=== PATIENT | female | born 1990 | race Caucasian/White ===

== ENCOUNTER 2017-01-26 15:27 | Inpatient (IN) | payer OTHER ==
[~2017-01-26] VITALS: Ht 167.6 cm; Wt 52.0 kg
[2017-01-26] MEDS ORDERED: PLEASE ENTER ALLERGIES MC SCH ×2 (16:00)
[2017-01-26] MEDS ORDERED: PLEASE ENTER HEIGHT AND WEIGHT MC SCH (16:00)
[2017-01-26] MEDS ORDERED: SODIUM CHLORIDE 0.9% 1,000ML IVBOLUS ONE (16:00)
[2017-01-26] MEDS ORDERED: ZIPRASIDONE 20 MG INJ IM ONE ×2 (16:30→21:20)
[2017-01-26 17:12] LABS: HEMATOCRIT 45.1 % (34.6-47.8); HEMOGLOBIN 15.4 g/dL (11.7-16.4); WHITE BLOOD COUNT 8.6 x10^3/uL (3.4-10)
[2017-01-26 17:22] LABS: BLOOD UREA NITROGEN 26 mg/dL (7-18)
[2017-01-26 18:31] LABS: ASPARTATE AMINO TRANSFERASE 23 U/L (15-37)
[2017-01-26 18:37] LABS: ACETAMINOPHEN < 2 mcg/mL (10-30)
[2017-01-27] MEDS ORDERED: ZIPRASIDONE 20 MG INJ IM ONE ×2 (06:08→06:30)
[2017-01-27 16:47] LABS: DAU SCREEN DISCLAIMER
[2017-01-27 16:53] LABS: PATH.CAST-FLAG NOT PRESENT; SPERM-FLAG NOT PRESENT; SRC-FLAG NOT PRESENT; XTAL-FLAG NOT PRESENT; YLC-FLAG NOT PRESENT
[2017-01-28] MEDS ORDERED: DOCUSATE 100 MG CAPSULE PO PRN (12:00)
[2017-01-28] MEDS ORDERED: SULFAMETH./TRIMETHOPRIM DS 800MG/160MG TABLET PO ONE (13:00)
[2017-01-28] MEDS ORDERED: HALOPERIDOL 5 MG/ML IM ONE (14:30)
[2017-01-28 19:27] VITALS: BP 100/63
[2017-01-28 20:51] VITALS: BP 112/73
[2017-01-28] MEDS ORDERED: SULFAMETH./TRIMETHOPRIM DS 800MG/160MG TABLET PO SCH ×2 (21:00)
[2017-01-28] MEDS: CEFTRIAXONE PMX 1GM/50ML 50 ML IV SCH (21:27)
[2017-01-28] MEDS: POTASSIUM CHLORIDE 20 MEQ, MAGNESIUM SULFATE 1 GM, FOLIC ACID 1 MG, THIAMINE 100 MG, MV... IV SCH (22:30)
[2017-01-28] MEDS ORDERED: LORazepam 2 MG/ML, 1ML IVPush PRN (23:30)
[2017-01-29 01:19] VITALS: BP 105/65
[2017-01-29 07:00] VITALS: BP 87/51
[2017-01-29 10:14] LABS: HCG UR OBC PASS
[2017-01-29] MEDS: QUETIAPINE 25MG TABLET PO SCH ×2 (10:36→22:26)
[2017-01-29 13:07] VITALS: BP 101/65
[2017-01-29] MEDS ORDERED: LORazepam 1MG TABLET PO PRN (16:30)
[2017-01-29 19:05] VITALS: BP 109/58
[2017-01-29] MEDS: CEFTRIAXONE PMX 1GM/50ML 50 ML IV SCH (22:26)
[2017-01-30] MEDS: POTASSIUM CHLORIDE 20 MEQ, MAGNESIUM SULFATE 1 GM, FOLIC ACID 1 MG, THIAMINE 100 MG, MV... IV SCH (01:44)
[2017-01-30 01:56] VITALS: BP 106/67
[2017-01-30 07:47] VITALS: BP 111/67
[2017-01-30] MEDS: QUETIAPINE 25MG TABLET PO SCH ×2 (09:01→21:21)
[2017-01-30 13:02] VITALS: BP 127/53
[2017-01-30] MEDS: ASA/APAP/ CAFFEINE TABLET PO PRN (16:16)
[2017-01-30 17:22] LABS: BLOOD UREA NITROGEN 21 mg/dL (7-18)
[2017-01-30 18:27] VITALS: BP 120/78
[2017-01-30] MEDS ORDERED: LORazepam 1MG TABLET PO PRN (18:30)
[2017-01-30] MEDS: LORazepam 1MG TABLET PO PRN (18:32)
[2017-01-30] MEDS: CEFDINIR 300 MG CAPSULE PO SCH (21:00)
[2017-01-31 00:34] VITALS: BP 108/71
[2017-01-31] MEDS: ASA/APAP/ CAFFEINE TABLET PO PRN (05:17)
[2017-01-31] MEDS: LORazepam 1MG TABLET PO PRN ×3 (05:17→18:39)
[2017-01-31 06:48] VITALS: BP 103/64
[2017-01-31] MEDS: QUETIAPINE 25MG TABLET PO SCH (08:55)
[2017-01-31] MEDS: CEFDINIR 300 MG CAPSULE PO SCH ×2 (08:59→20:16)
[2017-01-31] MEDS: MULTIVITAMIN 1 TABLET PO SCH (08:59)
[2017-01-31 12:47] VITALS: BP 114/73
[2017-01-31] MEDS: IBUPROFEN 200 MG TABLET PO PRN (14:34)
[2017-01-31] MEDS: HALOPERIDOL 5 MG/ML IM PRN (15:09)
[2017-01-31 18:35] VITALS: BP 132/79
[2017-01-31 19:12] VITALS: BP 159/88
[2017-01-31] MEDS: OLANZAPINE 10 MG TABLET PO SCH (20:15)
[2017-02-01 02:06] VITALS: BP 110/67
[2017-02-01 06:55] VITALS: BP 112/76
[2017-02-01] MEDS: LORazepam 1MG TABLET PO PRN ×3 (08:51→22:12)
[2017-02-01] MEDS: CEFDINIR 300 MG CAPSULE PO SCH (09:00)
[2017-02-01] MEDS: IBUPROFEN 200 MG TABLET PO PRN ×2 (10:26→18:11)
[2017-02-01] MEDS: MULTIVITAMIN 1 TABLET PO SCH (10:26)
[2017-02-01 12:54] VITALS: BP 129/87
[2017-02-01 16:04] LABS: HIV 1&2 ANTIBODY SCREEN Nonreactive (Nonreactive); HIV-1 p24 ANTIGEN Nonreactive (Nonreactive)
[2017-02-01 16:58] VITALS: BP 130/82
[2017-02-01 19:46] VITALS: BP 103/67
[2017-02-01] MEDS: OLANZAPINE 10 MG TABLET PO SCH (20:00)
[2017-02-02 04:10] VITALS: BP 106/74
[2017-02-02] MEDS: LORazepam 1MG TABLET PO PRN ×2 (04:13→10:16)
[2017-02-02 07:45] VITALS: BP 107/71
[2017-02-02] MEDS: MULTIVITAMIN 1 TABLET PO SCH (08:37)
[2017-02-02] MEDS: IBUPROFEN 200 MG TABLET PO PRN ×2 (10:26→13:53)
[2017-02-02] MEDS: HALOPERIDOL 5 MG/ML IM PRN (14:07)
[2017-02-02 14:26] VITALS: BP 110/77
[2017-02-02] MEDS ORDERED: LORazepam 1MG TABLET PO PRN (15:00)
[2017-02-02 19:33] VITALS: BP 117/81
[2017-02-02] MEDS: OLANZAPINE 10 MG TABLET PO SCH (21:13)
[2017-02-03] MEDS: BUTALB/APAP/CAFFEINE 50MG/325MG/40MG PO PRN ×3 (04:11→16:51)
[2017-02-03 07:34] VITALS: BP 113/75
[2017-02-03] MEDS: MULTIVITAMIN 1 TABLET PO SCH (08:21)
[2017-02-03 08:47] LABS: ASPARTATE AMINO TRANSFERASE 70 U/L (15-37); BLOOD UREA NITROGEN 18 mg/dL (7-18)
[2017-02-03] MEDS ORDERED: NICOTINE GUM 2 MG BC PRN (15:30)
[2017-02-03 17:43] VITALS: BP 109/73
[2017-02-03 19:20] VITALS: BP 106/68
[2017-02-03] MEDS: GUANFACINE 1 MG TABLET PO SCH (20:21)
[2017-02-03] MEDS ORDERED: QUETIAPINE 100MG TABLET PO SCH (21:00)
[2017-02-04 06:19] VITALS: BP 103/69
[2017-02-04] MEDS: BUTALB/APAP/CAFFEINE 50MG/325MG/40MG PO PRN (06:21)
[2017-02-04 07:54] VITALS: BP 107/72
[2017-02-04] MEDS: GUANFACINE 1 MG TABLET PO SCH ×2 (08:13→20:21)
[2017-02-04] MEDS: MULTIVITAMIN 1 TABLET PO SCH (08:13)
[2017-02-04 15:01] VITALS: BP 116/74
[2017-02-04] MEDS: LORazepam 1MG TABLET PO PRN ×2 (17:12→20:26)
[2017-02-04 19:38] VITALS: BP 111/73
[2017-02-04] MEDS: QUETIAPINE 100MG TABLET PO SCH (20:22)
[2017-02-05] MEDS: LORazepam 1MG TABLET PO PRN ×3 (03:58→15:19)
[2017-02-05 04:57] LABS: ASPARTATE AMINO TRANSFERASE 158 U/L (15-37); BLOOD UREA NITROGEN 22 mg/dL (7-18)
[2017-02-05 07:15] VITALS: BP 110/78
[2017-02-05] MEDS: BUTALB/APAP/CAFFEINE 50MG/325MG/40MG PO PRN (07:23)
[2017-02-05] MEDS: MULTIVITAMIN 1 TABLET PO SCH (08:19)
[2017-02-05] MEDS: GUANFACINE 1 MG TABLET PO SCH ×2 (08:19→20:32)
[2017-02-05 17:36] LABS: BLOOD UREA NITROGEN 25 mg/dL (7-18)
[2017-02-05 17:40] LABS: ASPARTATE AMINO TRANSFERASE 79 U/L (15-37)
[2017-02-05 17:41] LABS: ACETAMINOPHEN < 2 mcg/mL (10-30)
[2017-02-05 17:42] LABS: HEMATOCRIT 37.8 % (34.6-47.8); HEMOGLOBIN 12.7 g/dL (11.7-16.4); WHITE BLOOD COUNT 8.8 x10^3/uL (3.4-10)
[2017-02-05] MEDS: IBUPROFEN 200 MG TABLET PO PRN (18:49)
[2017-02-05 19:38] VITALS: BP 106/65
[2017-02-05] MEDS: QUETIAPINE 100MG TABLET PO SCH (20:33)
[2017-02-05] MEDS ORDERED: LORazepam 0.5MG TABLET PO ONE (21:30)
[2017-02-06 02:30] VITALS: BP 98/64
[2017-02-06] MEDS: LORazepam 1MG TABLET PO PRN (04:49)
[2017-02-06 07:41] VITALS: BP 115/77
[2017-02-06] MEDS: GUANFACINE 1 MG TABLET PO SCH (08:00)
[2017-02-06] MEDS: MULTIVITAMIN 1 TABLET PO SCH (08:00)
[2017-02-06 08:09] VITALS: BP 106/65
[2017-02-06 13:10] VITALS: BP 136/89
== END 2017-02-06 16:15 | disposition left against medical advice (07) | DRG 881 ==
LOC: ED 20:44 → EDIP 01-28 11:54 → 3E 01-28 12:07 → 3NE 01-28 20:13 → 3E 02-01 16:31 → 3NE 02-05 18:32
PROVIDERS: ADMIT Internal Medicine; ATTEND Hospitalist
PROC: 0T9B70Z Drainage of Bladder with Drainage Device, Via Natural or Artificial Opening (ICD-10-PCS; principal; 2017-01-28)
DX: F32.9 Major depressive disorder, single episode, unspecified (principal); E46 Unspecified protein-calorie malnutrition; F11.20 Opioid dependence, uncomplicated; F15.20 Other stimulant dependence, uncomplicated; Z68.1 Body mass index [BMI] 19.9 or less, adult; F23 Brief psychotic disorder; N39.0 Urinary tract infection, site not specified; R41.82 Altered mental status, unspecified; F41.9 Anxiety disorder, unspecified; Z76.5 Malingerer [conscious simulation]; Z79.899 Other long term (current) drug therapy; Z91.83 Wandering in diseases classified elsewhere
CPT/HCPCS: 36415; 70450; 76700; 80048; 80053; 80074; 80076; 80307; 80329; 81001; 81025; 82040; 83735; 84100; 84134; 84439; 84443; 84703; 85025; 85651; 86141; 86255; 86592; 86703; 87086; 87899; 93005; 93306; 96372; J0696; J3411; J3475; J3480; J3486; J7042; G0435; G0479; G0480; J1630

== ENCOUNTER 2017-03-31 11:56 | Emergency (ER) | payer MEDICAID, OTHER ==
[~2017-03-31] VITALS: Ht 167.6 cm; Wt 50.0 kg
[2017-03-31 12:49] VITALS: BP 115/71
[2017-03-31] MEDS ORDERED: ONDANSETRON ODT 4 MG PO ONE (13:00)
[2017-03-31] MEDS ORDERED: ONDANSETRON ODT 4 MG ONE (13:17)
[2017-03-31] MEDS ORDERED: ACETAMINOPHEN 325 MG TABLET ONE (13:17)
[2017-03-31] MEDS ORDERED: ACETAMINOPHEN 325 MG TABLET PO ONE (13:30)
== END 2017-03-31 13:24 | disposition home or self-care (01) ==
LOC: ED 13:09
DX: L02.01 Cutaneous abscess of face (principal); L02.413 Cutaneous abscess of right upper limb; L02.416 Cutaneous abscess of left lower limb; L02.415 Cutaneous abscess of right lower limb
CPT/HCPCS: 99283; Q0162

== ENCOUNTER 2017-04-14 12:52 | Emergency (ER) | payer MEDICAID ==
[~2017-04-14] VITALS: Ht 167.6 cm; Wt 48.0 kg
[2017-04-14] MEDS ORDERED: BACITRACIN ZINC OINT 500U/GM, 0.9 GM ONE (13:41)
== END 2017-04-14 15:44 | disposition home or self-care (01) ==
LOC: ED 13:23
DX: F15.20 Other stimulant dependence, uncomplicated (principal); W19.XXXA Unspecified fall, initial encounter; Y93.89 Activity, other specified; Y92.511 Restaurant or cafe as the place of occurrence of the external cause; Y99.9 Unspecified external cause status
CPT/HCPCS: 70450; 72125; 93005; 99284

== ENCOUNTER 2017-04-22 04:24 | Emergency (ER) | payer MEDICAID ==
[~2017-04-22] VITALS: Ht 170.2 cm; Wt 52.0 kg
[2017-04-22] MEDS ORDERED: MAALOX/HYOSCYAMINE/LIDOCAINE 45 ML BTL PO ONE (05:00)
[2017-04-22] MEDS ORDERED: MAALOX/HYOSCYAMINE/LIDOCAINE 45 ML BTL ONE (05:05)
[2017-04-22 05:40] VITALS: BP 120/66
== END 2017-04-22 05:42 | disposition home or self-care (01) ==
LOC: ED 04:29
DX: R09.89 Other specified symptoms and signs involving the circulatory and respiratory systems (principal); L73.9 Follicular disorder, unspecified
CPT/HCPCS: 70360; 99284

== ENCOUNTER 2017-05-23 18:28 | Emergency (ER) | payer MEDICAID ==
[~2017-05-23] VITALS: Ht 162.6 cm; Wt 50.0 kg
[2017-05-23 18:35] VITALS: BP 110/82
[2017-05-23] MEDS ORDERED: SODIUM CHLORIDE 0.9% 1,000ML IVBOLUS ONE (19:00)
[2017-05-23] MEDS ORDERED: SODIUM CHLORIDE FLUSH 10ML SYR IVF ONE (19:00)
[2017-05-23 19:04] LABS: BASOPHILS # (AUTO) 0.05 x10^3/uL (0-0.1); BASOPHILS % (AUTO) 1 % (0-1); EOSINOPHILS # (AUTO) 0.06 x10^3/uL (0-0.4); EOSINOPHILS % (AUTO) 1 % (1-7); LYMPHOCYTES # (AUTO) 1.63 x10^3/uL (1-3.4); LYMPHOCYTES % (AUTO) 29 % (22-44); MD NO; MEAN CORPUSCULAR HEMOGLOBIN 29.1 pg (27.0-34.8); MEAN CORPUSCULAR HGB CONC 33.3 g/dL (32.4-35.8); MEAN CORPUSCULAR VOLUME 87.3 fL (80-100); MONOCYTES # (AUTO) 0.31 x10^3/uL (0.2-0.8); MONOCYTES % (AUTO) 6 % (2-9); NEUTROPHILS # (AUTO) 3.51 x10^3/uL (1.8-6.8); NEUTROPHILS % (AUTO) 63 % (42-75); PLATELET COUNT 354 x10^3/uL (130-400); RED BLOOD COUNT 4.55 x10^6/uL (3.82-5.3); RED CELL DISTRIBUTION WIDTH 14.7 % (9.6-15.2)
[2017-05-23 19:17] LABS: ALANINE AMINOTRANSFERASE 38 U/L (12-78); ANION GAP 6 mmol/L (5-15); CALCIUM 9.3 mg/dL (8.5-10.1); CHLORIDE 108 mmol/L (98-107); CREATININE 0.66 mg/dL (0.55-1.02)
[2017-05-23 19:19] LABS: SALICYLATE LEVEL < 1.7 mg/dL (2.8-20.0)
[2017-05-23 19:20] LABS: ALKALINE PHOSPHATASE 115 U/L (45-117); BILIRUBIN,TOTAL 0.6 mg/dL (0.2-1.0); TOTAL PROTEIN 7.5 g/dL (6.4-8.2)
[2017-05-23 19:27] LABS: ACETAMINOPHEN < 2 mcg/mL (10-30)
== END 2017-05-23 20:20 | disposition home or self-care (01) ==
LOC: ED 19:35
DX: F11.159 Opioid abuse with opioid-induced psychotic disorder, unspecified (principal)
CPT/HCPCS: 36415; 71045; 80053; 80307; 80329; 83690; 84703; 85025; 99285; G0479; G0480

== ENCOUNTER 2017-05-24 14:31 | Observation (INO) | payer MEDICAID ==
[~2017-05-24] VITALS: Ht 162.6 cm; Wt 48.0 kg
[2017-05-24] MEDS ORDERED: LORazepam 1MG TABLET PO ONE (15:00)
[2017-05-24] MEDS ORDERED: ZIPRASIDONE 20 MG INJ IM ONE ×4 (15:16→23:30)
[2017-05-24 15:57] LABS: BASOPHILS # (AUTO) 0.06 x10^3/uL (0-0.1); BASOPHILS % (AUTO) 1 % (0-1); EOSINOPHILS # (AUTO) 0.06 x10^3/uL (0-0.4); EOSINOPHILS % (AUTO) 1 % (1-7); LYMPHOCYTES # (AUTO) 1.63 x10^3/uL (1-3.4); LYMPHOCYTES % (AUTO) 20 % (22-44); MD NO; MEAN CORPUSCULAR HEMOGLOBIN 29.5 pg (27.0-34.8); MEAN CORPUSCULAR HGB CONC 33.5 g/dL (32.4-35.8); MEAN CORPUSCULAR VOLUME 88.1 fL (80-100); MEAN PLATELET VOLUME 6.9 fL (7.4-10.4); MONOCYTES % (AUTO) 5 % (2-9); NEUTROPHILS % (AUTO) 73 % (42-75); PLATELET COUNT 333 x10^3/uL (130-400); RED BLOOD COUNT 4.53 x10^6/uL (3.82-5.3); RED CELL DISTRIBUTION WIDTH 14.6 % (9.6-15.2)
[2017-05-24 16:01] LABS: ANION GAP 8 mmol/L (5-15); CALCIUM 8.9 mg/dL (8.5-10.1); CHLORIDE 106 mmol/L (98-107); CREATININE 0.79 mg/dL (0.55-1.02); SALICYLATE LEVEL < 1.7 mg/dL (2.8-20.0)
[2017-05-24 16:02] LABS: ACETAMINOPHEN < 2 mcg/mL (10-30)
[2017-05-24 19:03] LABS: CULTURE INDICATED? YES; HCG UR SG < 1.005 (1.003-1.030); MICROSCOPIC INDICATED
[2017-05-24 19:41] LABS: AMPHETAMINE SCREEN, URINE Positive (Negative); BARBITURATE SCREEN, URINE Negative (Negative); BENZODIAZEPINE SCREEN, URINE Positive (Negative); CANNABINOID SCREEN, URINE Negative (Negative); COCAINE SCREEN, URINE Negative (Negative); METHADONE SCREEN, URINE Negative (Negative); OPIATE SCREEN, URINE Positive (Negative)
[2017-05-24] MEDS ORDERED: NITROFURANTOIN (MACROBID) 100 MG CAPSULE ONE (21:31)
[2017-05-24] MEDS: NITROFURANTOIN (MACROBID) 100 MG CAPSULE PO SCH (21:35)
[2017-05-24 21:50] VITALS: BP 91/55
[2017-05-24 22:37] VITALS: BP 115/73
[2017-05-24] MEDS: LORazepam 1MG TABLET PO PRN (22:40)
[2017-05-25] MEDS: NITROFURANTOIN (MACROBID) 100 MG CAPSULE PO SCH ×2 (07:56→19:38)
[2017-05-25] MEDS: ACETAMINOPHEN 325 MG TABLET PO PRN ×2 (07:56→15:17)
[2017-05-25] MEDS: LORazepam 1MG TABLET PO PRN ×3 (07:56→19:38)
[2017-05-25 08:06] VITALS: BP 118/74
[2017-05-25] MEDS ORDERED: SUMATRIPTAN 50 MG TABLET PO PRN (11:00)
[2017-05-25 15:22] VITALS: BP 114/74
[2017-05-25] MEDS ORDERED: OXYcodone IR 5MG TABLET PO PRN (17:00)
[2017-05-25] MEDS: METHADONE 5 MG TABLET PO SCH ×2 (17:00→23:21)
[2017-05-25] MEDS ORDERED: METHADONE 5 MG TABLET PO SCH ×2 (17:00)
[2017-05-25] MEDS ORDERED: METHADONE 10 MG TABLET ONE (17:11)
[2017-05-25 19:30] VITALS: BP 107/67
[2017-05-26] MEDS: IBUPROFEN 200 MG TABLET PO PRN ×2 (01:02→09:57)
[2017-05-26] MEDS: LORazepam 1MG TABLET PO PRN ×2 (03:16→08:05)
[2017-05-26 03:17] VITALS: BP 111/59
[2017-05-26] MEDS: METHADONE 5 MG TABLET PO SCH (05:13)
[2017-05-26 07:06] VITALS: BP 110/69
[2017-05-26] MEDS: NITROFURANTOIN (MACROBID) 100 MG CAPSULE PO SCH (08:05)
== END 2017-05-26 10:28 ==
LOC: ED 16:17 → OBSVTOIN 17:13 → EDIP 17:13 → INTOOBSV 17:13 → 2N 21:42
PROVIDERS: ADMIT Internal Medicine; ATTEND Family Medicine
DX: F23 Brief psychotic disorder (principal); F15.129 Other stimulant abuse with intoxication, unspecified; F17.210 Nicotine dependence, cigarettes, uncomplicated
CPT/HCPCS: 36415; 80048; 80307; 80329; 81001; 81025; 82040; 85025; 86703; 86704; 86705; 86803; 87077; 87086; 87186; 87899; 96372; 99285; G0378; J3486; G0435; G0479; G0480

== ENCOUNTER 2017-07-14 22:15 | Emergency (ER) | payer MEDICAID ==
[~2017-07-14] VITALS: Ht 167.6 cm; Wt 51.2 kg
[~2017-07-14 22:15] MED LIST: BUPR1FIL PO; CLON0.1T PO; DOXY100T10 PO; HALO5TAB5 PO
[2017-07-14] MEDS ORDERED: CLINDAMYCIN PMX 300MG/50ML 50 ML IV ONE (23:00)
[2017-07-14] MEDS ORDERED: SODIUM CHLORIDE FLUSH 10ML SYR IVF ONE (23:00)
[2017-07-14] MEDS ORDERED: CLINDAMYCIN 300 MG CAPSULE ONE (23:07)
[2017-07-14 23:19] LABS: BASOPHILS # (AUTO) 0.14 x10^3/uL (0-0.1); BASOPHILS % (AUTO) 1 % (0-1); EOSINOPHILS # (AUTO) 0.05 x10^3/uL (0-0.4); EOSINOPHILS % (AUTO) 1 % (1-7); LYMPHOCYTES # (AUTO) 1.25 x10^3/uL (1-3.4); LYMPHOCYTES % (AUTO) 12 % (22-44); MD NO; MEAN CORPUSCULAR HEMOGLOBIN 28.7 pg (27.0-34.8); MEAN CORPUSCULAR HGB CONC 33.9 g/dL (32.4-35.8); MEAN CORPUSCULAR VOLUME 84.7 fL (80-100); MEAN PLATELET VOLUME 7.4 fL (7.4-10.4); MONOCYTES # (AUTO) 0.62 x10^3/uL (0.2-0.8); MONOCYTES % (AUTO) 6 % (2-9); NEUTROPHILS # (AUTO) 8.06 x10^3/uL (1.8-6.8); NEUTROPHILS % (AUTO) 80 % (42-75); PLATELET COUNT 407 x10^3/uL (130-400); RED BLOOD COUNT 4.64 x10^6/uL (3.82-5.3); RED CELL DISTRIBUTION WIDTH 14.7 % (9.6-15.2)
[2017-07-14 23:29] LABS: ALBUMIN 3.2 g/dL (3.4-5.0); ANION GAP 8 mmol/L (5-15); CALCIUM 8.4 mg/dL (8.5-10.1); CHLORIDE 102 mmol/L (98-107)
[2017-07-14] MEDS ORDERED: CLINDAMYCIN 300 MG CAPSULE PO ONE (23:30)
[2017-07-15 00:27] VITALS: BP 104/58
[2017-07-15] MEDS ORDERED: CEFTRIAXONE 1,000 MG ONE (01:09)
[2017-07-15] MEDS ORDERED: IBUPROFEN 200 MG TABLET ONE (01:09)
[2017-07-15] MEDS ORDERED: CEFTRIAXONE 1,000 MG IM ONE (01:30)
[2017-07-15] MEDS ORDERED: IBUPROFEN 200 MG TABLET PO ONE (01:30)
== END 2017-07-15 02:19 | disposition home or self-care (01) ==
LOC: ED 23:08
DX: L03.116 Cellulitis of left lower limb (principal)
CPT/HCPCS: 36415; 73564; 80048; 82040; 85025; 96372; 99285; J0696

== ENCOUNTER 2017-08-14 10:52 | Emergency (ER) | payer MEDICAID ==
[~2017-08-14] VITALS: Ht 167.6 cm; Wt 53.4 kg
[2017-08-14 12:35] VITALS: BP 104/69
[2017-08-14] MEDS ORDERED: PROPARACAINE OPHTH 0.5%, 15ML ONE (12:55)
[2017-08-14] MEDS ORDERED: FLUORESCEIN OPHTHALMIC 1 MG STRIP ONE (12:55)
== END 2017-08-14 13:42 | disposition home or self-care (01) ==
LOC: ED 13:03
DX: H10.023 Other mucopurulent conjunctivitis, bilateral (principal); F17.200 Nicotine dependence, unspecified, uncomplicated
CPT/HCPCS: 99283